=== PATIENT | female | born 1935 | race Caucasian/White ===

== ENCOUNTER 2017-02-23 18:52 | Inpatient (IN) | payer MEDICARE ==
[~2017-02-23] VITALS: Ht 167.6 cm; Wt 57.8 kg
[~2017-02-23 18:52] MED LIST: ACET325T14 PO; ASCO100072 PO; CALC-138 PO; CYAN2000 PO; FERR325T20 PO; OLME5TAB4 PO; PANT20TA2 PO; PYRI200T3 PO
[2017-02-23] MEDS ORDERED: SODIUM CHLORIDE FLUSH 10ML SYR IVF ONE (19:30)
[2017-02-23 20:13] LABS: ASPARTATE AMINO TRANSFERASE 21 U/L (15-37); BLOOD UREA NITROGEN 17 mg/dL (7-18)
[2017-02-23 20:17] LABS: IS PT STATUS REG ER OR PRE ER? YES
[2017-02-23] MEDS ORDERED: LIDOCAINE 1%, 20ML SQ ONE (21:30)
[2017-02-24] VITALS (7 sets, daily range): BP systolic 131–153; BP diastolic 76–85
[2017-02-24] MEDS ORDERED: HYDROcodone/APAP 5/325 TABLET PO PRN (01:00)
[2017-02-24] MEDS ORDERED: ALUMINUM/MAG/SIMETHICONE 30 ML UDC PO PRN (01:00)
[2017-02-24] MEDS ORDERED: ACETAMINOPHEN 325 MG TABLET PO PRN (01:00)
[2017-02-24] MEDS ORDERED: ONDANSETRON 2MG/ML, 2ML IVPush PRN (01:00)
[2017-02-24] MEDS ORDERED: ZOLPIDEM 5MG TABLET PO PRN (01:00)
[2017-02-24 02:57] LABS: IS PT STATUS REG ER OR PRE ER? NO
[2017-02-24] MEDS: PANTOPROZOLE 40MG TABLET PO SCH ×2 (07:45→16:00)
[2017-02-24] MEDS: FERROUS SULFATE 325 MG TABLET PO SCH ×2 (07:45→17:00)
[2017-02-24] MEDS ORDERED: SODIUM CHLORIDE FLUSH 10ML SYR IVF SCH (09:00)
[2017-02-24] MEDS ORDERED: CYANOCOBALAMIN 1,000 MCG TABLET PO SCH (09:00)
[2017-02-24] MEDS ORDERED: LOSARTAN 25MG TABLET PO SCH (09:00)
[2017-02-24] MEDS ORDERED: protonix PO (17:45)
[2017-02-24] MEDS ORDERED: benicar PO (17:45)
[2017-02-24] MEDS ORDERED: [UNRECOGNIZED DRUG - OTHER] PO (17:46)
[2017-02-24] MEDS ORDERED: Vitamin B6 PO (17:46)
[2017-02-24] MEDS ORDERED: Vitamin B12 PO (17:47)
[2017-02-24] MEDS ORDERED: Vitamin C PO (17:48)
[2017-02-24] MEDS ORDERED: Calcium/Vitamin D PO (17:48)
== END 2017-02-24 18:18 | disposition home or self-care (01) | DRG 895 ==
LOC: ED 19:54 → EDIP 22:07 → 5SO 02-24 00:03 → 3NE 02-24 10:55
PROVIDERS: ADMIT Internal Medicine; ATTEND Internal Medicine
PROC: 0HQ1XZZ Repair Face Skin, External Approach (ICD-10-PCS; principal; 2017-02-23)
PROC: HZ34ZZZ Individual Counseling for Substance Abuse Treatment, Interpersonal (ICD-10-PCS; 2017-02-23)
DX: F10.129 Alcohol abuse with intoxication, unspecified (principal); R55 Syncope and collapse; S01.81XA Laceration without foreign body of other part of head, initial encounter; D53.9 Nutritional anemia, unspecified; I10 Essential (primary) hypertension; I35.1 Nonrheumatic aortic (valve) insufficiency; I70.0 Atherosclerosis of aorta; K44.9 Diaphragmatic hernia without obstruction or gangrene; K21.9 Gastro-esophageal reflux disease without esophagitis; K22.70 Barrett's esophagus without dysplasia; W19.XXXA Unspecified fall, initial encounter; Y93.89 Activity, other specified; Y92.89 Other specified places as the place of occurrence of the external cause; Y99.8 Other external cause status; Z87.891 Personal history of nicotine dependence; Z79.899 Other long term (current) drug therapy; Z88.8 Allergy status to other drugs, medicaments and biological substances; Z90.49 Acquired absence of other specified parts of digestive tract; Z90.710 Acquired absence of both cervix and uterus; Z88.5 Allergy status to narcotic agent
CPT/HCPCS: 36415; 70450; 71010; 72125; 80053; 80307; 84443; 84484; 85025; 85610; 85730; 93005; 93306; 93880; 99285

== ENCOUNTER 2019-09-08 14:24 | Emergency (ER) | payer MEDICARE ==
[~2019-09-08] VITALS: Ht 167.6 cm; Wt 55.8 kg
[~2019-09-08 14:24] MED LIST changes: +Calcium/Vitamin D PO; +FERR325T18 PO; -FERR325T20 PO; +Vitamin B12 PO; +Vitamin B6 PO; +Vitamin C PO; +[UNRECOGNIZED DRUG - OTHER] PO; +benicar PO; +protonix PO
[2019-09-08 14:35] VITALS: BP 157/101
[2019-09-08] MEDS ORDERED: LIDOCAINE-MPF 1%, 5ML ONE (14:49)
[2019-09-08] MEDS ORDERED: DIPH,PERTUSS(ACELL),TET VAC/PF 0.5 ML IM-VACC ONE ×2 (14:50→15:00)
[2019-09-08] MEDS ORDERED: LIDOCAINE-MPF 1%, 5ML INFIL ONE (15:00)
[2019-09-08] MEDS ORDERED: NEOSPORIN OINT. PKT 1 PACKET ONE (15:54)
== END 2019-09-08 16:41 | disposition home or self-care (01) ==
LOC: ED 16:30
DX: S01.01XA Laceration without foreign body of scalp, initial encounter (principal); I10 Essential (primary) hypertension; K21.9 Gastro-esophageal reflux disease without esophagitis; Z90.49 Acquired absence of other specified parts of digestive tract; Z90.710 Acquired absence of both cervix and uterus; W18.09XA Striking against other object with subsequent fall, initial encounter; Y93.89 Activity, other specified; Y92.89 Other specified places as the place of occurrence of the external cause; Y99.8 Other external cause status
CPT/HCPCS: 12031; 70450; 72125; 90471; 90715; 99284

== ENCOUNTER 2019-09-15 12:44 | Emergency (ER) | payer MEDICARE ==
[~2019-09-15] VITALS: Ht 167.6 cm; Wt 55.0 kg
[2019-09-15 13:13] VITALS: BP 157/97
== END 2019-09-15 13:23 | disposition home or self-care (01) ==
LOC: ED 13:10
DX: S01.01XD Laceration without foreign body of scalp, subsequent encounter (principal); I10 Essential (primary) hypertension; K21.9 Gastro-esophageal reflux disease without esophagitis; Z90.49 Acquired absence of other specified parts of digestive tract; Z90.710 Acquired absence of both cervix and uterus; X58.XXXD Exposure to other specified factors, subsequent encounter
CPT/HCPCS: 99281